=== PATIENT | female | born 1990 | race Caucasian/White ===

== ENCOUNTER 2024-01-29 02:34 | Emergency (ER) | payer BC, SELFPAY ==
--- NOTE | ~2024-01-29 | CT_ITS ---
EXAMINATION: CT abdomen pelvis w con DATE: 01/29/2024 06:38 INDICATION: Left lower quadrant abdominal pain. TECHNIQUE: Computed tomography (CT) of the abdomen and pelvis was performed with 100 mL Omnipaque 350 intravenous contrast. Automated exposure control and iterative reconstruction technique were employe d. The dose-length product was 263.58 mGy-cm. COMPARISON: None. FINDINGS: The visualized portions of the lung bases demonstrate a 3 mm nodule in left lower lobe, lik champ benign. A calcified left lung nodule is consistent with old granulomatous disease. No pleural eff usion. The heart size is normal. No pericardial effusion. There is a 6 mm cyst in the liver. The gall bladder, spleen, pancreas, adrenal glands, and right kidney are normal. There is mild left hydronephr osis and hydroureter. There is a 3 mm stone in left ureterovesicular junction. There is an intrauteri ne device in expected position. There is a 5.3 cm cyst in the right ovary. There are no dilated loops of bowel. The appendix is not visualized. There are no pathologically enlarged lymph nodes. There is physiologic fluid in the pelvis. The bones are unremarkable. IMPRESSION: 1. 3 mm stone at left ureterovesicular junction with mild left hydronephrosis and hydroureter. 2. 5.3 cm cyst in the right ovary, probably benign. Pelvis ultrasound is recommended. Reviewed, dictated and finalized at location A. UCT SUPPORT MANAGER IMPRESSION: 1. 3 mm stone at left ureterovesicular junction with mild left hydronephrosis a nd hydroureter. 2. 5.3 cm cyst in the right ovary, probably benign. Pelvis ultrasound is recomm ended.
[2024-01-29 02:35] VITALS: BP 110/91; PULSE 110; RESP 22; TEMP 37.1; O2SAT 100
--- NOTE | 2024-01-29 02:43 | PC.NURSE ---
Unable to obtain pt VS at this time. Pt in restroom having multiple episodes of emesis.
--- NOTE | 2024-01-29 03:33 | PC.NURSE ---
patient labs sent to laboratory at this time.
--- NOTE | 2024-01-29 03:37 | PC.NURSE ---
called labatory at this time to add on HCG.
[2024-01-29 03:44] LABS: Hematocrit 35.5 % (37.0-47.0); Hemoglobin 13.8 g/dL (12.0-15.0); Mean Corpuscular Volume 95.2 fl (80-100); Mean Platelet Volume 9.8 fl (7.4-10.4); Platelet Count Result 297 k/mm3 (150-375); Red Blood Count 3.73 M/mm3 (4.2-5.4); Red Cell Distribution Width 12.6 % (11.5-14.5); White Blood Count 12.2 K/mm3 (4.5-10.0)
[2024-01-29 03:47] LABS: Pregnancy On Board Control Positive; Urine Pregnancy Test Negative
--- NOTE | 2024-01-29 03:49 | PC.NURSE ---
this patient is now complaining of worsen abdominal pain. patient is grunting and moving around the bed nonstop. Patient states pain is now a 10/10. Patient is guarding her left lower side. Which is consistent with the patients stated pain.
[2024-01-29 03:52] LABS: Add Urine Microscopic? YES; Appearance Urine Clear (Clear); Bacteria Urine None Seen /hpf; Bilirubin Urine Negative (Negative); Blood Urine 3+ (Negative); Color Urine Yellow (Yellow); Glucose Urine UA Negative (Negative); Ketones Urine Trace mg/dL (Negative); Leukocyte Esterase Ur 1+ LEU/UL (Negative); Mucus Urine Present /lpf; Need Manual Microscopic Reviewed; Nitrate Urine Negative (Negative); Non Pathogenic Casts 0-2; Protein Urine Negative (Negative); RBC Urine 21-50 /hpf (0-2); Specific Grav Ur 1.017 (1.001-1.035); Squamous Epithelial Cell Urine None Seen /hpf (Few); Urobilinogen Urine 0.2 mg/dL (<2.0); WBC Urine 0-5 /hpf (0-3)
[2024-01-29 03:53] LABS: Alanine Aminotransferase 18 U/L (6-35); Albumin Level 4.5 g/dL (3.5-5.1); Alkaline Phosphatase 58 U/L (38-126); Anion Gap 8 mmol/L (4-12); Aspartate Amino Transferase 25 U/L (14-36); Bilirubin,Total 1.1 mg/dL (0.2-1.3); Blood Urea Nitrogen 15 mg/dL (7-17); Calcium 9.4 mg/dL (8.4-10.2); Carbon Dioxide 22 mmol/L (22-30); Chloride 107 mmol/L (98-107); Estimated CRCL calculation 100 ml/min; Estimated Glomerular Filt Rate > 60; Glucose 116 mg/dL (65-110); Lipase 88 U/L (23-300); Potassium 4.4 mmol/L (3.4-5.0); Sodium 137 mmol/L (137-145)
--- NOTE | 2024-01-29 03:53 | PC.NURSE ---
RN made MD aware of patient increased pain. Patient is currently vitally stable.
[2024-01-29 03:54] VITALS: BP 140/96; PULSE 100; RESP 22; O2SAT 100
[2024-01-29 04:02] LABS: Mean Corpuscular HGB Conc 38.9 g/dl (32-36)
[2024-01-29 04:09] LABS: Basophils Absolute Manual 0.36 K/mm3 (0.0-0.1); Basophils Percent Manual 3 % (0-1); Eosinophils Absolute Manual 0.36 K/mm3 (0.02-0.50); Eosinophils Percent Manual 3 % (0-4); Lymphocytes Absolute Manual 1.83 K/mm3 (1.1-4.5); Monocytes Absolute Manual 0.61 K/mm3 (0.1-0.90); Monocytes Percent Manual 5 % (3-9); Neutrophils Percent Manual 74 % (46-73); Platelet Estimate Adequate (Adequate); Total Cells Counted 100
[2024-01-29 04:10] LABS: Schistocytes None Seen; Smudge Cells PRESENT
[2024-01-29 07:21] VITALS: BP 129/79; PULSE 96; RESP 13; O2SAT 100
--- NOTE | 2024-01-29 07:23 | PC.NURSE ---
patient denies pain at this time. Patient states she feels much better than she did when she came in. patient resting in stretcher at this time
--- NOTE | 2024-01-29 07:26 | ED_ITS ---
HPI - Abdominal Pain General Chief Complaint: Abdominal Pain Stated Complaint: LLQ abd pain Time Seen by Provider: 01/29/24 07:23 Source: patient History of Present Illness HPI narrative: LEFT LOWER QUADRANT SHARP STABBING PAIN STARTED LAST NIGHT ASSOCIATED WITH N AUSEA AND VOMITING. PATIENT DENIES AGGRAVATING OR RELIEVING FACTORS. Related Data Allergies Allergy/AdvReac Type Severity Reaction Status Date / Time No Known Allergies Allergy Verified 01/29/24 02:35 Review of Systems Review of Systems: All systems reviewed & are unremarkable except as noted in HPI and below PMFSH Past Medical History Medical History BMI 22.0-22.9, adult Dermal nevus Encounter for cosmetic surgery Skin neoplasm Family History Family History Father No problems noted. Mother No problems noted. Sibling Hypertension Obesity Social History Social History Smoking status: Never smoker Alcohol intake: never Substance use: current Substance use type: marijuana Living arrangements: with family Occupation/Education: unemployed Additional occupation/education comments: stay at home mom. Gender identity (if verbalized by the patient): Female Exam Narrative: GENERAL APPEARANCE: WELL-DEVELOPED, WELL-NOURISHED SKIN: NORMAL COLOR HEAD: NORMOCEPHALIC, NONTRAUMATIC EYES: CLEAR CONJUNCTIVA ENT: OROPHARYNX NORMAL, EARS NORMAL, NOSE NORMAL NECK: SUPPLE, NONTENDER CHEST AND RESPIRATORY: AIRWAY PATENT, NO RESPIRATORY DISTRESS, NO ACCESSORY MUSCLE USE HEART: REGULAR RATE/RHYTHM ABDOMEN: SOFT, NONTENDER, NO ORGANOMEGALY, QUIET BOWEL SOUNDS VASCULAR: NORMAL PERIPHERAL PULSES, NORMAL CAPILLARY REFILL. MUSCULOSKELETAL: NORMAL RANGE OF MOTION, NONTENDER BACK NEUROLOGIC: ALERT AND ORIENTED ?3, ASSISTANT PROFESSOR OF ECONOMICS IS NORMAL TESTED, NO GROSS MOTOR DEFICIT Course Vital Signs Vital signs: Vital Signs Temperature 37.1 C 01/29/24 02:35 Pulse Rate 110 H 01/29/24 02:35 Respiratory Rate 22 H 01/29/24 02:35 Blood Pressure 110/91 H 01/29/24 02:35 Pulse Oximetry 100 01/29/24 02:35 Oxygen Delivery Room Air 01/29/24 02:35 Temperature 37.1 C 01/29/24 02:35 Pulse Rate 96 01/29/24 07:21 Respiratory Rate 13 01/29/24 07:21 Blood Pressure 129/79 01/29/24 07:21 Pulse Oximetry 100 01/29/24 07:21 Oxygen Delivery Room Air 01/29/24 02:35 MDM - Abdominal Pain MDM Narrative Medical decision making narrative: PATIENT PRESENTS WITH LEFT LOWER QUADRANT PAIN VITAL SIGNS ARE STABLE PHYSICAL EXAMINATION SHOWING NO TENDERNESS, INSIGNIFICANT PROBABLY BECAUSE I SEW ED THE PATIENT IS HOURS AFTER ARRIVAL TO THE ED DIFFERENTIAL DIAGNOSIS INCLUDE URINARY TRACT INFECTION, DIVERTICULITIS, COLITIS, CONSTIPATION, KIDNEY STONE, OVARIAN CYST, OVARIAN TORSION BLOOD WORKUP TODAY INCLUDES CBC, CMP, LIPASE SHOWED WBC OF 12.2 OTHERWISE INSIGNIFICANT URINALYSIS SHOWED 3+ BLOOD CT ABDOMEN AND PELVIS WITH IV CONTRAST SHOWED 3 MM LEFT URETEROVESICAL JUNCTION STONE. CURRENTLY PATIENT IS ASYMPTOMATIC, I ORDER TORADOL 30 MG IV AND FLOMAX P.O., PATIENT WILL BE DISCHARGED HOME TO FOLLOW-UP WITH UROLOGIST. Differential Diagnosis Differential diagnosis: Likely other ( ABOVE) Medical Records Attestation: I reviewed the patient's medical records. Lab Data Attestation: I reviewed the patient's lab results. 01/29/24 03:31 01/29/24 03:31 Labs: Lab Results 01/29/24 Range/Units 03:31 WBC 12.2 H (4.5-10.0) K/mm3 RBC 3.73 L (4.2-5.4) M/mm3 Hgb 13.8 (12.0-15.0) g/dL Hct 35.5 L (37.0-47.0) % MCV 95.2 (80-100) fl MCH 37.0 H (26-34) pg MCHC 38.9 H (32-36) g/dl RDW 12.6 (11.5-14.5) % Plt Count 297 (150-375) k/mm3 MPV 9.8 (7.4-10.4) fl Immature Gran % (Auto) Not Reportable Neut % (Auto) Not Reportable Lymph % (Auto) Not Reportable Nye % (Auto) Not Reportable Eos % (Auto) Not Reportable Baso % (Auto) Not Reportable Lymph # (Auto) Not Reportable Nye # (Auto) Not Reportable Eos # (Auto) Not Reportable Baso # (Auto) Not Reportable Abs Immat Gran (auto) Not Reportable Absolute Neuts (auto) Not Reportable Absolute Nucleated RBC Not Reportable Total Counted 100 Neutrophils % (Manual) 74 H (46-73) % Lymphocytes % (Manual) 15.0 L (18-44) % Monocytes % (Manual) 5 (3-9) % Eosinophils % (Manual) 3 (0-4) % Basophils % (Manual) 3 H (0-1) % Nucleated RBC % Not Reportable Abs Lymphs (Manual) 1.83 (1.1-4.5) K/mm3 Abs Monocytes (Manual) 0.61 (0.1-0.90) K/mm3 Absolute Eos (Manual) 0.36 (0.02-0.50) K/mm3 Abs Basophils (Manual) 0.36 H (0.0-0.1) K/mm3 Smudge Cells Present Platelet Estimate Adequate (Adequate) Schistocytes None seen Sodium 137 (137-145) mmol/L Potassium 4.4 (3.4-5.0) mmol/L Chloride 107 (98-107) mmol/L Carbon Dioxide 22 (22-30) mmol/L Anion Gap 8 (4-12) mmol/L BUN 15 (7-17) mg/dL Creatinine 0.60 L (0.7-1.0) mg/dL Estim Creat Clear Calc 100 ml/min Estimated GFR > 60 (59 - ) Glucose 116 H (65-110) mg/dL Calcium 9.4 (8.4-10.2) mg/dL Total Bilirubin 1.1 (0.2-1.3) mg/dL AST 25 (14-36) U/L ALT 18 (6-35) U/L Alkaline Phosphatase 58 (38-126) U/L Total Protein 7.0 (6.3-8.2) g/dL Albumin 4.5 (3.5-5.1) g/dL Lipase 88 (23-300) U/L Urine Color Yellow (Yellow) Urine Appearance Clear (Clear) Urine pH 8.0 (5.0-9.0) Ur Specific [place] 1.017 (1.001-1.035) Urine Protein Negative (Negative) mg/dL Urine Glucose (UA) Negative (Negative) mg/dL Urine Ketones Trace H (Negative) mg/dL Ur Blood (Man) 3+ H (Negative) Urine Nitrate Negative (Negative) Urine Bilirubin Negative (Negative) Urine Urobilinogen 0.2 (<2.0) mg/dL Add Ur Microanalysis Reviewed Leukocyte Esterase Rfl 1+ H (Negative) LOU/UL Urine RBC 21-50 H (0-2) /hpf Urine WBC 0-5 (0-3) /hpf Ur Squamous Epith Cells None seen (Few) /hpf Urine Bacteria None seen /hpf Urine Casts 0-2 Urine Mucus Present /lpf Urine Test Negative Imaging Data Radiologist's impression: ITS Impressions Abdomen/Pelvis CT 01/29/24 06:43 IMPRESSION: 1. 3 mm stone at left ureterovesicular junction with mild left hydronephrosis and hydroureter. 2. 5.3 cm cyst in the right ovary, probably benign. Pelvis ultrasound is recommended. Discharge Plan Discharge Clinical Impression: Kidney stone, Cyst of right ovary Patient Disposition: Home, Self-Care Condition: Stable Instructions: Ovarian Cyst (ED), Kidney Stones (ED) Additional Instructions: RETURN IF SYMPTOMS ARE WORSENING , CALL YOUR FAMILY PHYSICIAN FOR APPOINTMENT, TAKE TYLENOL NEEDED FOR ACHES AND PAIN, CONTINUE HOME MEDICATIONS. ENCOURAGE FLUID INTAKE CONTACT YOUR FAMILY PHYSICIAN OR YOUR OBGYN TO GET PELVIC ULTRASOUND WITHIN 5-7 DAYS BECAUSE OF LARGE RIGHT OVARIAN CYST. Prescriptions: New tamsulosin [Flomax] 0.4 mg capsule 0.4 mg PO DAILY Qty: 10 0RF hydrocodone-acetaminophen 5-325 mg tablet 1 tablet PO Q4H Qty: 20 0RF ondansetron HCl 4 mg tablet 4 mg PO Q4H Qty: 14 0RF Rx Instructions: 1st dose 1-2 hr before radiation No Action fluoxetine 20 mg capsule See Rx Instructions .ROUTE .COMPLEX Qty: 90 2RF Dose Instruction: TAKE 1 CAPSULE BY MOUTH DAILY Rx Instructions: TAKE 1 CAPSULE BY MOUTH DAILY Follow-up/Referrals: Pete Soriano MD [Physician] - 01/30/24 Garry Barahona MD [Primary Care Provider] - Stand Alone Forms: Work/School Release IP
[2024-01-29 08:00] VITALS: BP 117/80; PULSE 87; RESP 12; O2SAT 100
[2024-01-29] MEDS: ONDANSETRON INJ 4 MG/2 ML VIAL IV PUSH (08:23)
[2024-01-29] MEDS: SODIUM CHLORIDE 0.9% IV 1,000 ML 999 ML IV CONT (08:23)
[2024-01-29] MEDS: TAMSULOSIN HCL 0.4 MG CAPSULE PO (09:47)
[2024-01-29] MEDS: KETOROLAC 30 MG/ML VIAL (*BKC) IV PUSH (09:47)
== END 2024-01-29 09:57 | disposition home or self-care (01) ==
PROVIDERS: Emergency Medicine; Emergency Provider Emergency Medicine; PCP Family Medicine
DX: N20.0 Calculus of kidney (principal); N83.201 Unspecified ovarian cyst, right side
CPT/HCPCS: 36415; 74177; 80053; 81001; 81025; 83690; 85025; 87086; 96361; 96374; 96375; 99284; A9270; J1885; J2405; J7030; Q9967

== ENCOUNTER 2024-02-09 10:09 | Outpatient (CLI) | payer BC, SELFPAY ==
--- NOTE | ~2024-02-09 | US_ITS ---
EXAMINATION: US pelvic complete w TV INDICATION: Ovarian cyst follow-up Comparison:CT dated 01/29/2024 TECHNIQUE: Multiple transabdominal and endovaginal sonographic images of the pelvis performed. FINDINGS: The uterus measures 8.4 x 3.8 x 5.1 cm. There is an IUD present in the endometrium. The end ometrial complex measures 2 mm. The right ovary measures 7.5 x 2.8 x 5.3 cm and the left ovary measures 4.2 x 2.1 x 2.8 cm. There is a simple cyst of the right ovary measuring 5.2 x 3.1 x 3.8 cm There are small follicles in each ovary . Normal doppler signal in both ovaries. There is free fluid in the pelvis. There are no abnormal masses seen on either side. IMPRESSION: 1. Simple cyst of the right ovary measuring 5.2 cm. Reviewed, dictated and finalized at location B. SIFIER OPERATOR
== END 2024-02-09 10:10 | disposition home or self-care (01) ==
LOC: MICIMG 10:10
PROVIDERS: PCP Family Medicine
DX: N83.201 Unspecified ovarian cyst, right side (principal)
CPT/HCPCS: 76830; 76856

== ENCOUNTER 2024-11-08 08:38 | Emergency (ER) | payer BC, SELFPAY ==
--- NOTE | ~2024-11-08 | XR_ITS ---
EXAM/ PROCEDURE: XR finger 5th LT min 2V - 11/08/2024 9:09 CDT HISTORY: 34 years old Female with tender PIP and middle phalanx, fell COMPARISON: None available TECHNIQUE: Three view(s) FINDINGS/ IMPRESSION: Lucency at the base of the fifth middle phalanx,concerning for a nondisplaced fracture.No dislocation.Joint spaces are within normal limits. Reviewed, dictated and finalized at location N.
[2024-11-08 08:53] VITALS: BP 113/75; PULSE 112; RESP 16; TEMP 37.1; O2SAT 100
--- OUTSIDE RECORDS SUMMARY | 2024-11-08 09:02 | XMS_ITS | Clinical Summary ---
Author Organization [facility] Address [address] [place] [address] Care Team Providers Care Broadcast News Producer Name Role Phone Unavailable Primary Care Provider Unavailabl e Social History Tobacco Use Types Packs/Day Years Used Date Smoking Tobacco: Never Comments Unknown Sex and Gender Information Value Date Recorded Sex Assigned at Not on file Legal Sex Female 11:29 PM CDT Gender Identity Not on file Sexual Orientation Not on file Last Filed Vital Signs Vital Sign Reading Time Taken Comments Blood Pressure 110/70 11/14/2014 9:47 AM CDT Pulse 80 11/14/2014 9:47 AM CDT Temperature - - Respiratory Rate 14 09/26/2008 9:56 AM CDT r egular Oxygen Saturation - - Inhaled Oxygen Concentration - - Weight 57.2 kg (126 lb) 11/14/2014 9:47 AM CDT Height 162.6 cm (5' 4) 11/14/2014 9:47 AM CDT Body Mass Index 21.63 11/14/2014 9:47 AM CDT Plan of Treatment Health Maintenance Due Date Last Done Comments Cervical Cancer Screening Pa p Smear (Age 30 to 64) Every 3 Years 1988 Annual Physical 05/25/1991 Hepatitis C 2006 DTaP, Tdap and Td Vaccines ( 1 - Tdap) 05/25/2007 Hepatitis B Vaccines (1 of 3 - 19+ 3-dose series) 05/25/2007 HPV Vaccines (1 - 3-dose SCD M series) 05/25/2015 Cervical Cancer Screening Pa p with HPV Testing (Age 30 to 64) Every 5 Years 2018 Cervical Cancer Screening with HPV 2018 COVID-19 Vaccine (2023-2 5 season) 2024 Meningococcal B Vaccine Aged Out No l onger eligible based on patient's age to complete this topic Meningococcal Vaccine Aged Out No thiago breana eligible based on patient's age to complete this topic Pneumococcal Vaccine: Pediat rics (0 to 5 Years) and At-Risk Patients (6 to 49 Years) Aged Out No longer eligible b ased on patient's age to complete this topic RSV Immunizations Under 20 Months Aged Out No longer eligible based on patient's age to complete this topic Advance Directives Documents on File Type Date Recorded Patient Nba Player Expl anation Advance Directives and Living Will 10/08/2015 12:00 AM ADVANCED DIRECTIVES Advance Directives and Living Will 10/08/2015 12:00 AM ADVANCED DIRECTIVES
--- NOTE | 2024-11-08 10:22 | ED_ITS ---
HPI - Extremity Injury (Upper) General Chief Complaint: Extremity Injury, Upper Stated Complaint: LT hand pinky finger injury Time Seen by Provider: 11/08/24 09:15 Source: patient Mode of arrival: ambulatory Limitations: no limitations History of Present Illness HPI narrative: [age] year female presents with pain and swelling to left little finger. Patient was running this morning with running club at local school and fell on concrete and hit finger. Range of motion decreased due to pain, distal neurovascularly intact. Did not hit head. Was able to get up on her own. All systems reviewed and negative except as noted above. Related Data Home Medications ?Medication ?Instructions ?Recorded ?Confirmed ?Last Taken ?Type levonorgestrel (Mirena) 1 device intrauterine ONCE 0 11/08/24 11/08/24 Unknown History Allergies Allergy/AdvReac Type Severity Reaction Status Date / Time No Known Allergies Allergy Verified 11/08/24 08:52 [facility] Past Medical History Medical History BMI 22.0-22.9, adult Dermal nevus Encounter for cosmetic surgery Skin neoplasm Family History Family History Father No problems noted. Mother No problems noted. Sibling Hypertension Obesity Social History Social History Smoking status: Never smoker Alcohol intake: never Substance use: current Substance use type: marijuana Living arrangements: with family Occupation/Education: unemployed Additional occupation/education comments: stay at home mom. Gender identity (if verbalized by the patient): Female Comments At time of signature, agree with nursing past medical, surgical, social and family history. There is no relevant family history pertinent to the presenting complaint. Exam Narrative: GENERAL: This is a well-nourished, well-developed patient, in no apparent distress. HEAD: normocephalic, atraumatic. EYES: PERRL. Sclera clear/white. Vision is grossly intact. EARS: External ears normal NOSE: External nose normal NECK: Neck supple, non-tender without lymphadenopathy, masses or thyromegaly. CARDIOVASCULAR: Regular rate and rhythm without murmurs, gallops, or rubs. RESPIRATORY: Clear to auscultation. Breath sounds equal bilaterally. No wheezes, rales, or rhonchi. SKIN: warm, Dry, intact with no suspicious lesions or rash, good texture and turgor. NEURO: awake, alert, and oriented to person, place and time. There were no obvious focal neurologic abnormalities. EXTREMITIES: Mild swelling noted to left little finger with decreased range of motion. Tenderness to PIP and middle phalanx. No deformity noted. Distal neurovascularly intact. Course Course Level of Care: Express Care Visit Vital Signs Vital signs: Vital Signs Temperature 37.1 C 11/08/24 08:53 Pulse Rate 112 H 11/08/24 08:53 Respiratory Rate 16 11/08/24 08:53 Blood Pressure 113/75 11/08/24 08:53 Pulse Oximetry 100 11/08/24 08:53 Temperature 37.1 C 11/08/24 08:53 Pulse Rate 112 H 11/08/24 08:53 Respiratory Rate 16 11/08/24 08:53 Blood Pressure 113/75 11/08/24 08:53 Pulse Oximetry 100 11/08/24 08:53 Reviewed MDM - Extremity Injury (Upper) MDM Narrative Medical decision making narrative: possible fracture noted to left little finger. Discussed x-ray results with patient. Patient placed in finger splint. Recommend follow-up with primary care physician. Differential Diagnosis Differential diagnosis: Likely finger sprain and other ( Finger fracture) Imaging Data My impression: agree with radiologist Radiologist's impression: EXAM/ PROCEDURE: XR finger 5th LT min 2V - 11/08/2024 9:09 CDT HISTORY: 34 years old Female with tender PIP and middle phalanx, fell COMPARISON: None available TECHNIQUE: Three view(s) FINDINGS/ IMPRESSION: Lucency at the base of the fifth middle phalanx,concerning for a nondisplaced fracture.No dislocation.Joint spaces are within normal limits. Discharge Plan Discharge Clinical Impression: Closed fracture of phalanx of left little finger Patient Disposition: Home Condition: Stable Instructions: Antibiotic Form, Finger Fracture (ED) Additional Instructions: the x-ray of your left little finger showed a possible fracture to your middle phalanx. Wear finger splint for comfort and to promote healing. Take Tylenol or ibuprofen every 6-8 hours as needed for pain. schedule a follow-up appoint with your primary care physician in the next 3-4 weeks to re-evaluate healing. Patient Language: Montenegrin Prescriptions: No Action Mirena 21 mcg/24hr (up to 8 yrs) 52 mg intrauterine device 1 device intrauterine ONCE Rx Instructions: as a single dose fluoxetine 40 mg capsule 40 mg PO DAILY Qty: 90 0RF Follow-up/Referrals: Garry Barahona MD [Primary Care Provider, Family Practice] Stand Alone Forms: Work/School Release IP Time of Disposition: 10:28
== END 2024-11-08 10:31 | disposition home or self-care (01) ==
PROVIDERS: Emergency Provider Nurse Practitioner Family; PCP Family Medicine
DX: S62.607A Fracture of unspecified phalanx of left little finger, initial encounter for closed fracture (principal); W19.XXXA Unspecified fall, initial encounter; Y93.02 Activity, running; Z85.828 Personal history of other malignant neoplasm of skin
CPT/HCPCS: 29130; 73140; 99214; G0463

== ENCOUNTER 2024-12-06 15:56 | Outpatient (CLI) | payer BC, SELFPAY ==
--- NOTE | ~2024-12-06 | XR_ITS ---
EXAMINATION: XR hand LT min 3V, 12/06/2024 16:05 CDT HISTORY: W19.XXXA - Unspecified fall, initial encounter COMPARISON: No comparisons available. Findings: There is irregularity noted involving the proximal aspect of the intermediate phalanx fifth digit consistent with fracture age indeterminate, clinical correlation is required. No significant degenerative changes. Soft tissues unremarkable. Impression: Please see above Reviewed, dictated and finalized at location P. Impression: Please see above
== END 2024-12-06 15:57 | disposition home or self-care (01) ==
LOC: MICIMG 15:57
PROVIDERS: PCP Family Medicine; Visit Provider Nurse Practitioner Family
DX: M79.642 Pain in left hand (principal); W19.XXXA Unspecified fall, initial encounter
CPT/HCPCS: 73130